=== PATIENT | male | born 1985 | race Caucasian/White ===

== ENCOUNTER 2020-10-18 04:31 | Emergency (ER) | payer OTHER ==
[~2020-10-18 04:31] MED LIST: ASPIRIN EC325 MG PO; CYCLOBENZAPRINE10 MG PO; NITROSTAT0.4 MG SL; NORVASC10 MG PO; PRINIVIL10 MG PO
[2020-10-18 05:26] LABS: RED BLOOD COUNT 5.19 M/UL (4.20-5.50)
[2020-10-18 05:42] LABS: BUN/CREATININE RATIO 19 (0-10)
== END 2020-10-18 07:25 | disposition home or self-care (01) ==
LOC: ER1 04:31
PROVIDERS: Emergency Medicine
DX: I50.9 Heart failure, unspecified (principal); E78.5 Hyperlipidemia, unspecified
CPT/HCPCS: 71045; 80053; 80307; 81001; 82550; 82553; 83605; 83735; 83874; 83880; 84100; 84484; 85025; 87040; 87086; 93005; 99285; Q9967

== ENCOUNTER 2020-10-24 17:55 | Inpatient (IN) | payer OTHER ==
[~2020-10-24] VITALS: Ht 180 cm; Wt 115.8 kg
[2020-10-24 19:53] LABS: HEMOGLOBIN 13.1 gm/dl (14.0-17.5); RED BLOOD COUNT 5.77 M/UL (4.20-5.50); WHITE BLOOD COUNT 13.8 K/UL (4.5-11.0)
[2020-10-24 20:14] LABS: BUN/CREATININE RATIO 19 (0-10)
[2020-10-24] MEDS ORDERED: BUSPAR 10MG10 MG PO (22:28)
[2020-10-24] MEDS ORDERED: ZESTRIL 40 MG T40 MG PO (22:28)
[2020-10-25 06:40] LABS: BUN/CREATININE RATIO 19 (0-10)
[2020-10-26 02:58] LABS: HEMOGLOBIN 11.7 gm/dl (14.0-17.5)
[2020-10-26 02:59] LABS: RED BLOOD COUNT 5.18 M/UL (4.20-5.50)
[2020-10-26 03:23] LABS: BUN/CREATININE RATIO 21 (0-10)
[2020-10-26 09:17] LABS: HBSAG SCREEN Negative (Negative); HEP A AB, IGM Negative (Negative); HEP B CORE AB, IGM Negative (Negative); HEP C VIRUS AB <0.1 (0.0-0.9)
[2020-10-27 06:17] LABS: HEMOGLOBIN 11.4 gm/dl (14.0-17.5); RED BLOOD COUNT 5.09 M/UL (4.20-5.50); WHITE BLOOD COUNT 11.6 K/UL (4.5-11.0)
[2020-10-27 06:33] LABS: BUN/CREATININE RATIO 19 (0-10)
[2020-10-27] MEDS ORDERED: LISINOPRIL10 MG PO (11:04)
[2020-10-27] MEDS ORDERED: ASPIRIN EC81 MG PO (11:04)
[2020-10-27] MEDS ORDERED: CARVEDILOL3.125 MG PO (11:04)
[2020-10-27] MEDS ORDERED: LASIX40 MG PO (11:04)
[2020-10-27] MEDS ORDERED: ALDACTONE 25MG25 MG PO (11:04)
[2020-10-28 06:12] LABS: HEMOGLOBIN 11.9 gm/dl (14.0-17.5); RED BLOOD COUNT 5.32 M/UL (4.20-5.50); WHITE BLOOD COUNT 12.7 K/UL (4.5-11.0)
[2020-10-28 06:40] LABS: BUN/CREATININE RATIO 23 (0-10)
== END 2020-10-28 19:15 | disposition home or self-care (01) | DRG 280 ==
LOC: ER1 17:55 → CDU 20:55 → MED SURG 4 20:55
PROVIDERS: Internal Medicine; Physician Assistant; Physician Assistant Medical; ADMIT Internal Medicine
DX: I16.0 Hypertensive urgency (principal); I21.A1 Myocardial infarction type 2; I50.23 Acute on chronic systolic (congestive) heart failure; I42.7 Cardiomyopathy due to drug and external agent; I11.0 Hypertensive heart disease with heart failure; I45.4 Nonspecific intraventricular block; Z79.899 Other long term (current) drug therapy; Z79.82 Long term (current) use of aspirin; F15.10 Other stimulant abuse, uncomplicated; E87.6 Hypokalemia; Z91.19 Patient's noncompliance with other medical treatment and regimen; E78.00 Pure hypercholesterolemia, unspecified
CPT/HCPCS: ECHO; 36415; 71045; 76705; 80048; 80053; 80074; 82550; 82553; 83605; 83874; 83880; 84132; 84439; 84443; 84484; 85025; 85610; 93005; 93306; 96374; 96375; 99285; J1650; J1940; U0002